=== PATIENT | female | born 1955 | race American Indian/Alaskan Native ===

== ENCOUNTER 2019-02-20 17:22 | Emergency (ER) | payer BC ==
[2019-02-20] MEDS ORDERED: BOOSTRIX IM ONE (17:38)
--- NOTE | 2019-02-20 17:40 | Emergency Department Report ---
ED Laceration HPI - HPI Chief Complaint: Puncture Wound Stated Complaint: TETANUS SHOT Time Seen by Provider: 02/20/19 17:35 Occurred When: Today Laceration Symptoms: Yes Pain, No Foreign Body Sensation, No Numbness, No W eakness Other History: L FOOT PAIN SP STEPPING ON TACK. NEEDS TDAP ED Review of Systems ROS: Stated complaint: TETANUS SHOT Other details as noted in HPI Comment: All other systems reviewed and negative ED Past Medical Hx - Past Medical History Hx Hypertension: Yes - Surgical History Additional Surgical History: C/S - Family History Family history: no significant - Medications Home Medications: Home Medications Medication Instructions Recorded Confirmed Last Taken Type Metoprolol [Lopressor TAB] 50 mg PO BID #60 tablet 02/20/19 Unknown Rx Laceration Physical Exam - Exam General: Vital signs noted. No distress. Alert and acting appropriately. Laceration Exam: Yes Normal Distal CMS, No Foreign Body, No Exposed Tendon, Vessel, or Nerve, No Tendon Injury ED Medical Decision Making - Medical Decision Making STEPPED ON TACK SHE PULLED OUT NEEDS TDAP NO BLEEDING NO INFECTION VSS X BP INC. SHE IS OUT OF HER METOP. GIVEN MED REFILL NO CP, SOB, HEADACHE DC HOME W DC PLAN OF CARE Critical care attestation.: If time is entered above; I have spent that time in minutes in the direct care of this critically ill patient, excluding procedure time. ED Disposition Clinical Impression: Puncture wound, Medication refill, Hypertension Disposition: DC-01 TO HOME OR SELFCARE Is pt being admited?: No Does the pt Need Aspirin: No Condition: Stable Instructions: Puncture Wound (ED), Hypertension (ED) Prescriptions: Metoprolol [Lopressor TAB] 50 mg PO BID #60 tablet Referrals: [facility] [Outside] - 3-5 Days Time of Disposition: 17:38
[2019-02-20 17:54] VITALS: BP 160/103
== END 2019-02-20 17:57 | disposition home or self-care (01) ==
LOC: ED 17:22
DX: S91.332A Puncture wound without foreign body, left foot, initial encounter (principal); I10 Essential (primary) hypertension; Z88.0 Allergy status to penicillin; Z88.2 Allergy status to sulfonamides; Z88.8 Allergy status to other drugs, medicaments and biological substances; Z79.899 Other long term (current) drug therapy; W22.8XXA Striking against or struck by other objects, initial encounter; Y93.89 Activity, other specified; Y92.89 Other specified places as the place of occurrence of the external cause; Y99.8 Other external cause status
CPT/HCPCS: 90471; 90715; 99282